=== PATIENT | male | born 1940 | race Caucasian/White ===

== ENCOUNTER 2016-10-21 05:20 | Emergency (ER) | payer MEDICARE, OTHER ==
[~2016-10-21] VITALS: Ht 175.3 cm; Wt 81.4 kg
[2016-10-21 05:24] VITALS: BP 155/76; PULSE 65; RESP 21; O2SAT 98
[2016-10-21 06:03] LABS: BASOPHILS % (AUTO) 0.6 % (0-3); MONOCYTES % (AUTO) 8.9 % (4-12); Mean Corpuscular Hemoglobin 30.9 pg (27.0-35.0); NEUTROPHILS % (AUTO) 69.6 % (40-74); Platelet Count 222 bil/L (150-400)
--- NOTE | 2016-10-21 06:05 | ED.REPORT ---
HPI-General Illness Date of Service Oct 21, 2016 ED Provider: Az Carias Patient is a healthy 76 year old male who presents to the ED complaining of UTI symptoms onset 4 days ago. Associated symptoms include dysuria, abdominal pain that awakes him at night, and constipation (osnet 3-4 days ago). He has been taking stool softeners and laxatives with little relief. He has daily bowel movements but they are very difficult to pass. He denies fevers, chills, back pain, vomiting, or any other symptoms. He has been taking AZO at home with little relief. He has taken sulfamethoxazole before and would like a prescription. Nursing Notes Stated Complaint: BLADDER INFECTION Chief Complaint: Male Abdominal Pain Nursing Notes Reviewed: Yes Allergies: Coded Allergies: No Known Allergies (Unverified , 10/21/16) Scheduled Sulfamethoxazole/Trimeth 800-160 mg (Bactrim DS) 1 Each Tablet 1 TABLET PO BID Scheduled PRN Magnesium Hydroxide (Milk of Magnesia) 400 Mg/5 Ml Oral.susp 15 ML PO QID PRN PRN For Constipation Polyethylene Glycol 3350 (Miralax) 17 Gm Powd.pack 17 GM PO DAILY PRN PRN For Constipation General Time Seen by MD: 06:04 Chief Complaint Other (Dysuria ) Hx Obtained From: Patient Arrived By: Walk-in Sudden in Onset?: Yes Onset Occurred: 4 days ago Symptom Duration: Since onset Similar Sx Previous: Yes Past Medical History Past Medical History Denies Past Surgical History TURP Smoking History Unknown if Ever Smoker Social History Alcohol Use: "Social" Ambulatory Status Independent Review of Systems Full Review of Systems Constitutional: Denies: Chills, Fever GI: Reports: Abdominal pain, Constipation, Denies: Vomiting Male: Reports Dysuria Musculoskeletal: Denies: Back pain Complete sys rev & neg: except as marked. Physical Exam Vital Signs Vital Signs Date Time Temp Pulse Resp B/P Pulse Ox O2 Delivery O2 Flow Rate FiO2 10/21/16 07:37 70 16 157/87 96 Room Air 10/21/16 05:24 36.2 65 21 155/76 98 Room Air Initial VS: Reviewed, Vital signs abnormal Head / Eyes: Atraumatic, Normocephalic Neck: Full range of motion Respiratory: Breath sounds normal, Clear to auscultation, No respiratory distress Cardiovascular: Intact distal pulses Abdomen / GI: Soft, Non-tender Skin: Warm, Dry Neurologic: Alert, Oriented, Nonfocal Psychiatric: Mood/affect normal, Behavior normal, Normal thought content General/Constitutional: Awake, Alert, Well developed Interpretation & Diagnostics Lab Results Interpretation Result Diagram: 10/21/16 0550 10/21/16 0550 Test 10/21/16 05:40 10/21/16 05:50 Urine Color Mobile (YELLOW) Urine Appearance Clear (CLEAR,HAZY) Urine pH 6.0 (5.0-8.0) Urine Specific Reading 1.015 (1.003-1.035) Urine Protein mg/dL (NEG,TRACE) Urine Glucose (UA) Negativemg/dL (NEGATIVE) Urine Ketones mg/dL (NEGATIVE) Urine Occult Blood Negative (NEGATIVE) Urine Nitrite (NEGATIVE) Urine Bilirubin (NEGATIVE) Urine Urobilinogen mg/dL (NORMAL) Urine Leukocyte Esterase (NEGATIVE) Urine RBC 0-2/hpf (0-2) Urine WBC 0-5/hpf (0-5) Urine Epithelial Cells Occasional/hpf (NONE-MOD) Urine Crystals None seen (NONE SEEN) Urine Bacteria None/hpf (NONE-FEW) Urine Hyaline Casts None/lpf (NONE) Urine Granular Casts None seen (NONE SEEN) Urine Waxy Casts None seen (NONE SEEN) Urine Red Blood Cell Casts None seen (NONE SEEN) Urine White Blood Cell Casts None seen (NONE SEEN) Urine Mucus None seen (None Seen) Urine Trichomonas None seen (NONE SEEN) Urine Yeast None (NONE SEEN) Urinalysis Comment Color interference Urine Culture Reflexed Not indicated Hold Urine Received (Received) White Blood Count 7.0th/mm3 (3.8-10.1) Red Blood Count 5.31mil/mm3 (4.40-5.80) Hemoglobin 16.4g/dL (13.8-17.2) Hematocrit 48.3% (41.0-50.0) Mean Corpuscular Volume 91.0fL (81-100) Mean Corpuscular Hemoglobin 30.9pg (27.0-35.0) Mean Corpuscular Hemoglobin Concent 34.0% (32.0-37.0) Red Cell Distribution Width 13.1% (12.3-15.4) Platelet Count 222bil/L (150-400) Neutrophils (%) (Auto) 69.6% (40-74) Lymphocytes (%) (Auto) 15.6% (14-46) Monocytes (%) (Auto) 8.9% (4-12) Eosinophils (%) (Auto) 5.0% (0-5) Basophils (%) (Auto) 0.6% (0-3) Sodium Level 142mEq/L (134-144) Potassium Level 4.5mEq/L (3.5-5.2) Chloride Level 103mEq/L (97-108) Carbon Dioxide Level 25mmol/L (18-29) Blood Urea Nitrogen 9mg/dL (8-27) Creatinine 0.94mg/dL (0.76-1.27) Estimat Glomerular Filtration Rate 83mL/min (>59) Glucose Level 114mg/dL (60-99) Calcium Level 9.1mg/dL (8.5-10.1) Magnesium Level 2.1mg/dL (1.6-2.6) Total Bilirubin 0.5mg/dL (0.0-1.2) Aspartate Amino Transf (AST/SGOT) 23U/L (0-50) Alanine Aminotransferase (ALT/SGPT) 16U/L (0-44) Alkaline Phosphatase 97U/L (25-160) Total Protein 7.4g/dL (6.4-8.4) Albumin 4.3g/dL (3.4-5.0) Lipase 73U/L (13-60) CT Abd / Pelvis Interpretation IMPRESSION: Large amount of intracolonic stool and colonic distention. No appendicitis, diverticulitis, or mechanical small bowel obstruction. Other findings above. Please see final report for other non-emergent incidental findings Edith Allen M.D. Study type: Abdominal CT IV contrast Interpretation / Wet Read by: Interpret - Radiologist Re-Eval/Medical Decision Med Decision/Clinical Course No obvious sign of UTI based on the urinalysis however given his symptoms will treat with Bactrim. Additionally giving the vague abdominal pain and advanced age basic labs and CT scan were performed and were reassuring. Bowel regimen was prescribed as well. Return and follow-up precautions given Time of Eval: 07:21 Re-Evaluation/Progress Note: Rechecked patient. Discussed plan for discharge. Patient understands and agrees with plan. All questions addressed at this time. Counseled Regarding: Diagnosis, Lab results, Need for follow-up, When/why to return to ED Discharge & Departure Primary Impression: Constipation Constipation type: unspecified constipation type Qualified Code: K59.00 - Constipation, unspecified Additional Impression: Dysuria Disposition: Home Discharge Condition All VS Reviewed: Yes Condition: Stable Additional Instructions: Take MiraLAX, milk of magnesia for your constipation. Take Bactrim for your dysuria. Follow-up with your regular doctor in the next 2 days and return to the ER as needed for worsening symptoms. Referrals: Zuleyka Mathews (PCP) Scribe Attestation Portions of this note were transcribed by Radha Vera. I, Dr. Carias personally performed the history, physical exam and medical decision-making; I reviewed and confirmed the accuracy of the information in the transcribed note. Signed by: Radha Vera 10/21/16, 0729 copies to: Zuleyka Mathews Timothy S DO Oct 21, 2016 06:05 RADHA VERA Oct 21, 2016 06:27
[2016-10-21 06:29] LABS: Magnesium 2.1 mg/dL (1.6-2.6)
[2016-10-21 06:39] LABS: APPEARANCE,URINE CLEAR (CLEAR,HAZY); COLOR,URINE ORANGE (YELLOW); OCCULT BLOOD,URINE NEGATIVE (NEGATIVE)
[2016-10-21] MEDS ORDERED: MAGN400O4 PO (07:25)
[2016-10-21] MEDS ORDERED: POLY17PO6 PO (07:25)
[2016-10-21] MEDS ORDERED: SULF1TAB7 PO (07:25)
--- NOTE | 2016-10-21 07:29 | DRSVH ---
PROCEDURE: CT ABDOMEN AND PELVIS WITH CONTRAST (PNL-7102) INDICATIONS: diffuse abd pain TECHNIQUE: After the administration of intravenous contrast, 5 mm thick sections acquired from the diaphragm to the symphysis. 5 mm coronal and sagittal reformats were acquired. For radiation dose reduction, the following was used: automated exposure control, adjustment of mA and/or kV according to patient siz e. COMPARISON: None. FINDINGS: Image quality: Good. ABDOMEN: Lung bases: Lung bases show only minimal subsegmental atelectasis on the right Heart size is normal. Solid organs: Liver and spleen are normal in size and enhancement. Gallbladder is within normal arce its. Biliary system is non dilated. Pancreas enhances normally. No adrenal nodules. Kidneys demon strate normal size and enhancement, without hydronephrosis. Peritoneum and bowel: Bowel loops demonstrate normal wall thickness and caliber. The exception may b e the terminal ileum which suggests mildly thickened wall but no flaca-fat stranding is seen. No free fluid or air. Nodes and vessels: No retroperitoneal or mesenteric adenopathy by size criteria. Aorta and inferior vena cava are normal in size. Miscellaneous: No ventral hernias. PELVIS: Genitourinary: Bladder wall thickness cannot be determined because of incomplete underfilling. Prost ate is mildly enlarged with evidence of TURP. Miscellaneous: No inguinal hernias or adenopathy. Bones: No suspicious bony lesions. No vertebral body compression fractures. IMPRESSION: Question of terminal ileum mild inflammatory change. No acute disease is otherwise seen or suggested. Previous TURP. Probable very small hiatal hernia. Dictated by: Manoj Chatterjee M.D. on 10/21/2016 at 7:21 Approved by: Manoj Chatterjee M.D. on 10/21/2016 at 7:27
[2016-10-21 07:37] VITALS: BP 157/87; PULSE 70; RESP 16; O2SAT 96
== END 2016-10-21 07:38 | disposition home or self-care (01) ==
LOC: SED 05:20
DX: K59.00 Constipation, unspecified (principal); R30.0 Dysuria
CPT/HCPCS: 36415; 74177; 80053; 81000; 83690; 83735; 85025; 99284; Q9967

== ENCOUNTER 2016-10-24 19:31 | Emergency (ER) | payer MEDICARE ==
[~2016-10-24] VITALS: Ht 175.3 cm; Wt 81.4 kg
[~2016-10-24 19:31] MED LIST: MAGN400O4 PO; POLY17PO6 PO; SULF1TAB7 PO
[2016-10-24 19:37] VITALS: BP 172/82; PULSE 80; RESP 18; O2SAT 97
--- NOTE | 2016-10-24 22:19 | ED.REPORT ---
HPI-General Illness Date of Service Oct 24, 2016 ED Provider: Pete Mcnamara Patient is an otherwise healthy 76 year old male who presents to the ED complaining of constipation onset 8 days ago. He denies abdominal pain, vomiting , hematochezia, or any other symptoms. He was seen 4 days ago for the same symptoms. His last BM was at 5 am this morning after 3 hours of trying. He is currently on sulfa for a bladder infection. Nursing Notes Stated Complaint: CONSTIPATION Chief Complaint: General Complaint Nursing Notes Reviewed: Yes Allergies: Coded Allergies: No Known Allergies (Unverified , 10/21/16) Scheduled Sulfamethoxazole/Trimeth 800-160 mg (Bactrim DS) 1 Each Tablet 1 TABLET PO BID Scheduled PRN Magnesium Hydroxide (Milk of Magnesia) 400 Mg/5 Ml Oral.susp 15 ML PO QID PRN PRN For Constipation Polyethylene Glycol 3350 (Miralax) 17 Gm Powd.pack 17 GM PO DAILY PRN PRN For Constipation General Time Seen by MD: 22:19 Chief Complaint Other (Constipation ) Hx Obtained From: Patient Arrived By: Walk-in Sudden in Onset?: Yes Onset Occurred: 1 week ago Symptom Duration: Since onset Severity: Current: No pain currently Severity: Maximum: No pain Pertinent Negative: Pt denies other symptoms Pertinent Negative: Exacerbated by nothing Recent Healthcare: Recent doctor visit Similar Sx Previous: Yes Past Medical History Past Medical History Denies Past Surgical History TURP Smoking History Unknown if Ever Smoker Social History Alcohol Use: "Social" Other Social History: Local resident Ambulatory Status Independent Review of Systems Full Review of Systems GI: Reports: Constipation, Denies: Abdominal pain, Hematochezia, Vomiting Complete sys rev & neg: except as marked. Physical Exam Nursing note and vitals reviewed. Constitutional: Well-developed, well-nourished. Not diaphoretic. Head: Normocephalic and atraumatic. Mouth/Throat: Oropharynx is clear and moist. No oropharyngeal exudate. Neck: Supple, no tracheal deviation. Cardiovascular: Normal rate, regular rhythm. Equal and intact distal pulses throughout. Pulmonary/Chest: Effort normal and breath sounds normal. No respiratory distress. Abdominal: Soft. No distension. There is no tenderness, rebound, or guarding. Bowel sounds present. Musculoskeletal: Range of motion grossly intact, moving all extremities. No edema or tenderness appreciated. Neurological: AOx3. Grossly nonfocal exam. Strength and sensation intact and equal to bilateral upper and lower extremities. Skin: Warm and dry, no rashes or pallor appreciated. Psychiatric: Appropriate mood and affect. Behavior appears normal. Vital Signs Vital Signs Date Time Temp Pulse Resp B/P Pulse Ox O2 Delivery O2 Flow Rate FiO2 10/24/16 23:36 74 20 140/81 98 10/24/16 19:37 36.8 80 18 172/82 97 Room Air Re-Eval/Medical Decision Med Decision/Clinical Course 76M w/ constipation. No abd pain or TTP to suggest acute intraabdominal process. Well appearing. Patient given mag citrate. Careful return precautions and need for PCP f/u discussed. Patient agreeable to plan, no further questions. Time of Eval: 23:38 Re-Evaluation/Progress Note: Discussed plan for discharge. Patient understands and agrees with plan. All questions addressed at this time. Counseled Regarding: Diagnosis, Need for follow-up, When/why to return to ED Discharge & Departure Primary Impression: Constipation Constipation type: unspecified constipation type Qualified Code: K59.00 - Constipation, unspecified Disposition: Home Discharge Condition All VS Reviewed: Yes Condition: Stable Patient Instructions: Constipation (ED) Additional Instructions: You have been seen in the emergency department for evaluation of constipation. At this time, as discussed, your abdomen is soft and is not tender. I do not think that there is an emergent cause for your constipation at this time, however if you develop any abdominal pain I'd like you to return to the emergency room. Please follow up with your regular doctor in the next several days. Referrals: Zuleyka Mathews (PCP) Scribe Attestation Portions of this note were transcribed by Radha Mortensen. I, Dr. Mcnamara personally performed the history, physical exam and medical decision-making; I reviewed and confirmed the accuracy of the information in the transcribed note. Signed by: Radha Mortensen 10/24/16, 3704 copies to: Zuleyka Mathews William B MD Oct 24, 2016 22:19 RADHA MORTENSEN Oct 24, 2016 23:06
[2016-10-24 23:36] VITALS: BP 140/81; PULSE 74; RESP 20; O2SAT 98
[2016-11-09] MEDS ORDERED: ASPI-973 PO (15:50)
[2016-11-09] MEDS ORDERED: VITA400C64 PO (15:50)
[2016-11-09] MEDS ORDERED: MAGN100T6 PO (15:50)
[2016-11-09] MEDS ORDERED: CYAN10008 PO (15:50)
[2016-11-09] MEDS ORDERED: SAW/1TAB2 PO (15:50)
[2016-11-09] MEDS ORDERED: MULT-1018 PO (15:50)
[2016-11-09] MEDS ORDERED: POLY17PO6 PO (15:50)
[2016-11-09] MEDS ORDERED: KELP1TAB2 PO (15:50)
== END 2016-10-24 23:44 | disposition home or self-care (01) ==
LOC: SED 19:31
DX: K59.00 Constipation, unspecified (principal); Z87.448 Personal history of other diseases of urinary system

== ENCOUNTER → 2016-11-10 | Day surgery (SDC) | payer MEDICARE ==
[~2016-11-10] VITALS: Ht 175.3 cm; Wt 78.0 kg
[~2016-11-10] MED LIST changes: +0.9% Sodium Chloride 1,000 ML IV PRN; +ASPI-973 PO; +CYAN10008 PO; +KELP1TAB2 PO; +MAGN100T6 PO; -MAGN400O4 PO; +MULT-1018 PO; +SAW/1TAB2 PO; -SULF1TAB7 PO; +Sodium Chloride LOK Flush 10 mL Syringe IV PRN; +VITA400C64 PO; +fentaNYL-PF 50 mCg/mL 2 mL Inj IVPUSH PRN
[2016-11-10 13:36] VITALS: BP 143/85; PULSE 66; RESP 18; O2SAT 99
[2016-11-10 14:21] VITALS: BP 110/60; PULSE 61; RESP 15; O2SAT 96
[2016-11-10 14:39] VITALS: BP 111/60; PULSE 62; RESP 16; O2SAT 98
--- NOTE | 2016-11-10 14:47 | ENDO ---
[address] [address] ENDOSCOPY PROCEDURE PATIENT: JUAN RAMON VIERA : 1940 MR#: [id number] ADMIT: 11/10/2016 JOB ID: [id number] DATE: 11/10/2016 PROCEDURE: Colonoscopy. INDICATION: Constipation. The patient's ASA classification is 2. Mallampati score is 2. MEDICATIONS: 1. Versed 5 mg. 2. Fentanyl 100 mcg. INSTRUMENT USED: PCF H 180 AL. PREPARATION QUALITY: Was good. PROCEDURE DETAILS: After informed consent was obtained, the patient was brought to the GI suite, where he was placed on oxygen via nasal cannula and monitored with continuous pulse oximeter, telemetry and blood pressure monitoring. A time-out was performed. Then, he was placed in the left lateral decubitus position and medications were administered for sedation. Digital rectal examination was performed, which was unremarkable. The colonoscope was then inserted into the rectum and advanced under direct visualization to the cecum, which was identified by the presence of the ileocecal valve and appendiceal orifice. Once the cecum was reached, the colonoscope was withdrawn back into the rectum and mucosa and lumen were examined. In the rectum, retroflexion was performed. Following retroflexion, remaining air in the rectum was suctioned, and procedure was completed. FINDINGS: Normal examination from rectum to cecum. IMPRESSION: Normal colonoscopy. RECOMMENDATIONS: 1. Followup in GI clinic. 2. Fiber-rich diet. 3. Repeat colonoscopy in 10 years, sooner if symptoms should dictate. COMPLICATIONS: None. ESTIMATED BLOOD LOSS: 0.
== END | disposition home or self-care (01) ==
LOC: END 00:18
PROVIDERS: ATTEND Internal Medicine Gastroenterology
DX: K59.00 Constipation, unspecified (principal); R19.4 Change in bowel habit; G47.33 Obstructive sleep apnea (adult) (pediatric); R60.9 Edema, unspecified; Z79.82 Long term (current) use of aspirin
CPT/HCPCS: 45378; 99153; G0500; J2250; J3010; J7030

== ENCOUNTER 2016-11-11 01:07 | Emergency (ER) | payer MEDICARE ==
[~2016-11-11] VITALS: Ht 175.3 cm; Wt 80.9 kg
[~2016-11-11 01:07] MED LIST changes: -0.9% Sodium Chloride 1,000 ML IV PRN; -Sodium Chloride LOK Flush 10 mL Syringe IV PRN; -fentaNYL-PF 50 mCg/mL 2 mL Inj IVPUSH PRN
[2016-11-11 01:16] VITALS: BP 139/80; PULSE 66; RESP 16; O2SAT 97
--- NOTE | 2016-11-11 01:31 | ED.REPORT ---
HPI-Abd Pain M 40 and Over Date of Service Nov 11, 2016 ED Provider: Luis Miranda MD 76-year-old male with colonoscopy performed within the last 24 hours presents to the ED complaining of pressure in the abdomen and feeling like he needs to pass a bowel movement. He states that this feeling has been constant over the last 2 weeks, this was the reason he began his workup initially that led to the colonoscopy. Initially he was given MiraLAX, and then switched to magnesium citrate. Each of these treatments causes him to have explosive diarrhea. He was evaluated 2 weeks ago with abdominal CT and findings were negative. He was subsequently evaluated with colonoscopy to rule out masses or findings related to colon blockage or pathology. He states that the colonoscopy report was negative. Today he states that his symptoms are exactly the same as previous to colonoscopy. He also states that he feels a tightness in his abdomen relieved by passing gas. Nursing Notes Stated Complaint: CONSTIPATION POST PROCEDURE Chief Complaint: Male Abdominal Pain Nursing Notes Reviewed: Yes Allergies: Coded Allergies: No Known Drug Allergies (Verified Allergy, Unknown, 11/09/16) Scheduled Aspirin (Aspirin) 81 Mg Tablet 81 MG PO DAILY Cyanocobalamin (Vitamin B-12) (Vitamin B-12) 1,000 Mcg Tablet 1,000 MCG PO DAILY Kelp (Kelp) 1 Each Tablet 1 EACH PO DAILY Magnesium Citrate (Magnesium Citrate) 100 Mg Tablet 100 MG PO DAILY Multivitamin (Multi Vitamin Daily) 1 Each Tablet 1 EACH PO DAILY Saw/Vit E/Sod Trisha/Lyc/Beta/Pyg (Prostate Health Caplet) 1 Each Tablet 1 EACH PO DAILY Vitamin E Mixed (Vitamin E) 400 Unit Capsule 400 UNIT PO DAILY Miscellaneous Medications Polyethylene Glycol 3350 (Miralax) 17 Gm Powd.pack 17 GM PO General Time Seen by MD: 01:29 Chief Complaint Constipation, Other (tenesmus) Hx Obtained From: Patient Sudden in Onset?: No Onset Occurred: More than a week ago... (2 weeks) Symptom Duration: More than a week... (2 weeks) Location: : Diffuse Severity: Current: No pain currently Severity: Maximum: No pain Risk Factors )( AAA Risk Stratification Risk factors reviewed CAD Risk Stratification Risk factors reviewed TAD Risk Stratification Risk factors reviewed Past Medical History Past Medical History Denies Past Surgical History TURP Smoking History Unknown if Ever Smoker Social History Alcohol Use: "Social" Other Social History: Local resident Ambulatory Status Independent Review of Systems Complete sys rev & neg: except as marked. Physical Exam Initial Vital Signs Vital Signs (First) Date Time Temp Pulse Resp B/P Pulse Ox O2 Delivery O2 Flow Rate FiO2 11/11/16 01:16 36.5 66 16 139/80 97 Room Air Initial VS: Reviewed, Vital signs normal Head / Eyes: Atraumatic, Normocephalic, PERRL ENT: Mucous membranes moist, Conjunctiva normal, No scleral icterus Neck: Supple, Non-tender, Full range of motion Extremities: Vascular intact, Neuro intact, No swelling, No tenderness Skin: Warm, Dry, No cyanosis Neurologic: Alert, Oriented, Nonfocal Psychiatric: Mood/affect normal, Behavior normal, Normal thought content Abdomen: Atraumatic, No guarding, No rebound, BS normoactive, No distention, No palpable mass, No pulsatile mass Tenderness/Guarding/Rebound: Positive: Tender RUQ... (Mild) Rectum / Perineum: Atraumatic, No gross blood, No discharge, No fecal impaction , No fissures, No hemorrhoids, No lesions, No mass increased sphincter tone tender with insertion Interpretation & Diagnostics Lab Results Interpretation Result Diagram: 11/11/16 0246 11/11/16 0246 Test 11/11/16 02:46 White Blood Count 6.9th/mm3 (3.8-10.1) Red Blood Count 5.62mil/mm3 (4.40-5.80) Hemoglobin 17.3g/dL (13.8-17.2) Hematocrit 50.6% (41.0-50.0) Mean Corpuscular Volume 90.0fL (81-100) Mean Corpuscular Hemoglobin 30.8pg (27.0-35.0) Mean Corpuscular Hemoglobin Concent 34.2% (32.0-37.0) Red Cell Distribution Width 12.8% (12.3-15.4) Platelet Count 258bil/L (150-400) Neutrophils (%) (Auto) 70.5% (40-74) Lymphocytes (%) (Auto) 13.9% (14-46) Monocytes (%) (Auto) 11.0% (4-12) Eosinophils (%) (Auto) 4.1% (0-5) Basophils (%) (Auto) 0.4% (0-3) Sodium Level 140mEq/L (134-144) Potassium Level 4.6mEq/L (3.5-5.2) Chloride Level 102mEq/L (97-108) Carbon Dioxide Level 21mmol/L (18-29) Blood Urea Nitrogen 11mg/dL (8-27) Creatinine 0.98mg/dL (0.76-1.27) Estimat Glomerular Filtration Rate 79mL/min (>59) Glucose Level 97mg/dL (60-99) Calcium Level 9.3mg/dL (8.5-10.1) Magnesium Level 2.0mg/dL (1.6-2.6) Total Bilirubin 0.5mg/dL (0.0-1.2) Aspartate Amino Transf (AST/SGOT) 24U/L (0-50) Alanine Aminotransferase (ALT/SGPT) 16U/L (0-44) Alkaline Phosphatase 95U/L (25-160) Total Protein 7.5g/dL (6.4-8.4) Albumin 4.4g/dL (3.4-5.0) Lipase 83U/L (13-60) Hold Barrientos Top Tube Received (Received) Lab Results Interpretation: Insignificant findings Re-Eval/Medical Decision Med Decision/Clinical Course It does not appear that there is any acute process going on at this time. However, the patient has just had a colonoscopy and with tightness in the abdomen, and should be evaluated with follow-up CT scan to rule out bleeding or trauma from colonoscopy even though this is unlikely. It is just had a bowel prep from the colonoscopy in the last 24 hours is unlikely that there is impacted stool in the colon at this time. This patient describes his history and seems likely that his complaint of constipation is more related to tenesmus than actual constipation. A digital rectal exam was performed which was negative for impacted stool, showed a excessively tight sphincter with pain on insertion despite adequate use of lubricant. Counseled Regarding: Diagnosis, Lab results, Need for follow-up, When/why to return to ED Discharge & Departure Primary Impression: Status post colonoscopy Additional Impression: Tenesmus Disposition: Home Vital Signs - All Vital Signs Date Time Temp Pulse Resp B/P Pulse Ox O2 Delivery O2 Flow Rate FiO2 11/11/16 05:30 36.9 64 16 137/81 94 Room Air 11/11/16 01:16 36.5 66 16 139/80 97 Room Air )( All Prior VS Reviewed: Yes Condition: Stable Additional Instructions: You came in today for abdominal pressure and a feeling that he needed to relieve her bowels. With the CT scan done today as well as the blood work that was ordered, we are not concerned for acute pathology at this point. Please follow-up with GI as previously planned, and discuss with them the findings of colonoscopy as well as your continuing symptoms of feeling like you need to pass a bowel movement even though there is not a significant amount of stool impaction Referrals: Zuleyka Mathews (PCP) Attending Statement The patient was seen and examined together with Dr. Guadalupe and I agree with the history, exam and plan as outlined in the note above. Luis Miranda MD Nov 11, 2016 01:31 Nirav Guadalupe DO Nov 11, 2016 02:42
[2016-11-11] MEDS ORDERED: 0.9% Sodium Chloride 1,000 ML IV ONE (02:26)
[2016-11-11 02:59] LABS: BASOPHILS % (AUTO) 0.4 % (0-3); EOSINOPHILS % (AUTO) 4.1 % (0-5); Mean Corpuscular Hemoglobin 30.8 pg (27.0-35.0); NEUTROPHILS % (AUTO) 70.5 % (40-74); Platelet Count 258 bil/L (150-400)
[2016-11-11 05:30] VITALS: BP 137/81; PULSE 64; RESP 16; O2SAT 94
--- NOTE | 2016-11-11 08:26 | DRSVH ---
PROCEDURE: CT ABDOMEN AND PELVIS WITH CONTRAST (PNL-7102) INDICATIONS: pain and distention post colonoscopy TECHNIQUE: After the administration of intravenous contrast, 5 mm thick sections acquired from the diaphragm to the symphysis. 5 mm coronal and sagittal reformats were acquired. For radiation dose reduction, the following was used: automated exposure control, adjustment of mA and/or kV according to patient veena reyes. COMPARISON: [facility], CT, CT ABD PELVIS W CON, 10/21/2016, 6:49. FINDINGS: Image quality: Excellent. ABDOMEN: Lung bases: Mild platelike atelectasis is present at the right lung base unchanged from the study kaia ed 10/21/16. Solid organs: Liver and spleen are normal in size and enhancement. Gallbladder is unremarkable. Bi liary system is non dilated. Pancreas enhances normally. No adrenal nodules. Kidneys demonstrate n ormal size and enhancement, without hydronephrosis. Peritoneum and bowel: Bowel loops demonstrate normal wall thickness and caliber. The appendix is thi n walled and gas filled.There are scattered sigmoid diverticula. No evidence for diverticulitis. No f ree fluid or air. Nodes and vessels: No retroperitoneal or mesenteric adenopathy by size criteria. Aorta and inferior vena cava are normal in size. Miscellaneous: No ventral hernias. PELVIS: Genitourinary: Bladder wall thickness is normal. The central portion of the prostate is fluid fille d suggesting prior urologic intervention. Miscellaneous: No inguinal hernias or adenopathy. Bones: No suspicious bony lesions. No vertebral body compression fractures. IMPRESSION: 1. No acute intra-abdominal findings. Specifically, no intra-abdominal fluid or pneumoperitoneum to s uggest perforation after colonoscopy. These findings are concordant with the overnight interpretation. 2. Diverticulosis. No acute diverticulitis. Normal appendix. Dictated by: Jemma Li M.D. on 11/11/2016 at 8:21 Approved by: Jemma Li M.D. on 11/11/2016 at 8:24
== END 2016-11-11 05:28 | disposition home or self-care (01) ==
LOC: SED 01:07
DX: R19.8 Other specified symptoms and signs involving the digestive system and abdomen (principal); Z98.890 Other specified postprocedural states; Z79.82 Long term (current) use of aspirin
CPT/HCPCS: 36415; 74177; 80053; 83690; 83735; 85025; 96360; 99285; J7030; Q9967

== ENCOUNTER 2016-11-30 20:43 | Emergency (ER) | payer MEDICARE ==
[~2016-11-30] VITALS: Ht 175.3 cm; Wt 79.1 kg
[2016-11-30 21:26] VITALS: BP 149/87; PULSE 63; RESP 18; O2SAT 98
--- NOTE | 2016-11-30 22:00 | ED.REPORT ---
HPI-Abd Pain M 40 and Over Date of Service Nov 30, 2016 ED Provider: Dr. Viraj Olvera The patient is a 76 year old male who presents to the ED complaining of constipation. Patient has not had his own bowel movement in over a month. He gave himself an enema earlier this morning with minimal relief. He has been taking magnesium citrate for a week, Lactulose, and Linzess with no relief. Prior to this month, he has had normal bowel movements his whole life. He denies any change in his medical regimen, fever, vomiting, abdominal pain, or any other symptoms. He has an endoscopy scheduled soon and had a colonoscopy a week ago. Nursing Notes Stated Complaint: CONSTIPATION Chief Complaint: Male Abdominal Pain Nursing Notes Reviewed: Yes Allergies: Coded Allergies: No Known Drug Allergies (Verified Allergy, Unknown, 11/09/16) Scheduled Aspirin (Aspirin) 81 Mg Tablet 81 MG PO DAILY Cyanocobalamin (Vitamin B-12) (Vitamin B-12) 1,000 Mcg Tablet 1,000 MCG PO DAILY Kelp (Kelp) 1 Each Tablet 1 EACH PO DAILY Magnesium Citrate (Magnesium Citrate) 100 Mg Tablet 100 MG PO DAILY Multivitamin (Multi Vitamin Daily) 1 Each Tablet 1 EACH PO DAILY Saw/Vit E/Sod Trisha/Lyc/Beta/Pyg (Prostate Health Caplet) 1 Each Tablet 1 EACH PO DAILY Vitamin E Mixed (Vitamin E) 400 Unit Capsule 400 UNIT PO DAILY Miscellaneous Medications Polyethylene Glycol 3350 (Miralax) 17 Gm Powd.pack 17 GM PO General Time Seen by MD: 21:59 Chief Complaint Constipation Hx Obtained From: Patient Arrived By: Walk-in Sudden in Onset?: Yes Onset Occurred: More than a week ago... (1 month) Symptom Duration: Since onset Location: : Abdomen lower Quality: Painful Severity: Current: No pain currently Severity: Maximum: Moderate Recent Healthcare: No recent doctor visit, No recent hospitalization Similar Sx Previous: No Past Medical History Past Medical History Denies Past Surgical History TURP Smoking History Never Smoker Social History Alcohol Use: "Social" Other Social History: Local resident Ambulatory Status Independent Review of Systems Constitutional: Denies: Fever GI: Reports: Constipation, Denies: Abdominal pain, Nausea, Vomiting Musculoskeletal: Denies: Back pain, Extremity pain, Extremity swelling, Joint pain, Joint swelling, Neck pain Complete sys rev & neg: except as marked. Physical Exam Initial Vital Signs Vital Signs (First) Date Time Temp Pulse Resp B/P Pulse Ox O2 Delivery O2 Flow Rate FiO2 11/30/16 21:26 36.4 63 18 149/87 98 Room Air Initial VS: Reviewed General/Constitutional: Awake, Alert, Cooperative Respiratory / Chest: Atraumatic, Breath sounds NL, Breath sounds = bilat Cardiovascular: Heart rate NL, Regular rhythm, Heart sounds NL Abdomen: Atraumatic, Non-tender abdomen benign Back: Atraumatic, Full range of motion, Non-tender Head / Eyes: Atraumatic, Normocephalic ENT: Atraumatic, Mucous membranes moist Skin: Atraumatic, Color NL, No rash Neurologic: Oriented X3, Speech NL, No motor deficits Upper Extremity / MS: Atraumatic, Full range of motion, No deformity Lower Extremity / Pelvis / MS: Atraumatic, Full range of motion, No deformity Interpretation & Diagnostics Interpretation & Diagnostics: ABDOMINAL X-RAY IMPRESSION: constipated Lab Results Interpretation Result Diagram: 11/30/16224911/30/16 2250 Test 11/30/16 22:50 11/30/16 23:24 White Blood Count 6.9th/mm3 (3.8-10.1) Red Blood Count 5.14mil/mm3 (4.40-5.80) Hemoglobin 15.8g/dL (13.8-17.2) Hematocrit 45.9% (41.0-50.0) Mean Corpuscular Volume 89.3fL (81-100) Mean Corpuscular Hemoglobin 30.7pg (27.0-35.0) Mean Corpuscular Hemoglobin Concent 34.4% (32.0-37.0) Red Cell Distribution Width 12.7% (12.3-15.4) Platelet Count 238bil/L (150-400) Neutrophils (%) (Auto) 69.8% (40-74) Lymphocytes (%) (Auto) 15.1% (14-46) Monocytes (%) (Auto) 10.0% (4-12) Eosinophils (%) (Auto) 4.1% (0-5) Basophils (%) (Auto) 0.7% (0-3) Prothrombin Time 11.6sec (8.1-12.5) Prothromb Time International Ratio 1.08ratio Sodium Level 139mEq/L (134-144) Potassium Level 4.2mEq/L (3.5-5.2) Chloride Level 103mEq/L (97-108) Carbon Dioxide Level 23mmol/L (18-29) Blood Urea Nitrogen 7mg/dL (8-27) Creatinine 0.83mg/dL (0.76-1.27) Estimat Glomerular Filtration Rate 96mL/min (>59) Glucose Level 99mg/dL (60-99) Calcium Level 9.1mg/dL (8.5-10.1) Magnesium Level 2.1mg/dL (1.6-2.6) Total Bilirubin 0.5mg/dL (0.0-1.2) Aspartate Amino Transf (AST/SGOT) 24U/L (0-50) Alanine Aminotransferase (ALT/SGPT) 16U/L (0-44) Alkaline Phosphatase 90U/L (25-160) Total Protein 7.1g/dL (6.4-8.4) Albumin 4.1g/dL (3.4-5.0) Lipase 67U/L (13-60) Urine Color Yellow (YELLOW) Urine Appearance Clear (CLEAR,HAZY) Urine pH 5.5 (5.0-8.0) Urine Specific Mentor 1.005 (1.003-1.035) Urine Protein Negativemg/dL (NEG,TRACE) Urine Glucose (UA) Negativemg/dL (NEGATIVE) Urine Ketones Negativemg/dL (NEGATIVE) Urine Occult Blood Negative (NEGATIVE) Urine Nitrite Negative (NEGATIVE) Urine Bilirubin Negative (NEGATIVE) Urine Urobilinogen Normalmg/dL (NORMAL) Urine Leukocyte Esterase Negative (NEGATIVE) Urine RBC 0-2/hpf (0-2) Urine WBC 0-5/hpf (0-5) Urine Epithelial Cells Occasional/hpf (NONE-MOD) Urine Crystals None seen (NONE SEEN) Urine Bacteria None/hpf (NONE-FEW) Urine Hyaline Casts None/lpf (NONE) Urine Granular Casts None seen (NONE SEEN) Urine Waxy Casts None seen (NONE SEEN) Urine Red Blood Cell Casts None seen (NONE SEEN) Urine White Blood Cell Casts None seen (NONE SEEN) Urine Mucus None seen (None Seen) Urine Trichomonas None seen (NONE SEEN) Urine Yeast None (NONE SEEN) Urinalysis Comment None Urine Culture Reflexed Not indicated Re-Eval/Medical Decision Med Decision/Clinical Course 76-year-old with a recent onset of constipation after fairly normal bowel habit previously. He has had a colonoscopy, and apparently a fairly adequate colon prep, But is again full of stool on a plain film. He is currently on lactulose with no result. We will begin Colyte prep and plan follow up with GI as already arranged. He is just had two CAT scans and no indication for additional imaging at this time. His exam is benign. Time of Eval: 23:07 Re-Evaluation/Progress Note: Pt rechecked. Informed pt his x-ray results. He is quite constipated. Plan to dischage pt and follow up with GI. Pt understands and agrees with plan. All questions addressed. Counseled Regarding: Diagnosis, Lab results, Need for follow-up, When/why to return to ED Discharge & Departure Primary Impression: Constipation Constipation type: unspecified constipation type Qualified Code: K59.00 - Constipation, unspecified Disposition: Home Vital Signs - All Vital Signs Date Time Temp Pulse Resp B/P Pulse Ox O2 Delivery O2 Flow Rate FiO2 11/30/16 23:39 58 18 169/94 99 11/30/16 21:26 36.4 63 18 149/87 98 Room Air )( All Prior VS Reviewed: Yes Condition: Stable Patient Instructions: Constipation (ED) Additional Instructions: Thank you for entrusting us with your care today. Your abdominal x-ray shows that you are again constipated. There is solid stool and gas all the way over to the right colon. Your enemas are only dealing with the lower part of the rectum, see need a more thorough cleanout. I am sending you home with [facility] colonoscopy prep. Resume your Linzess tomorrow as directed. Follow up with gastroenterology in the next week, call and make an appointment tomorrow. Return to the Emergency Department if you experience any new or worsening symptoms. I hope you feel better soon! Referrals: Zuleyka Mathews (PCP) Adryan Attestation Portion of this note were transcribed by Cheri Cullen. I, Dr. Olvera, personally performed the history, physical exam, and medical decision-making: I reviewed and confirmed the accuracy for the information in the transcribed note. Signed by: adryan Briceno, 11/30/16 3143 copies to: Zuleyka Mathews Christopher W MD Nov 30, 2016 22:00 Cheri Cullen Nov 30, 2016 22:07
[2016-11-30] MEDS ORDERED: 0.9% Sodium Chloride 1,000 ML IV ONE (22:05)
[2016-11-30 22:55] LABS: BASOPHILS % (AUTO) 0.7 % (0-3); EOSINOPHILS % (AUTO) 4.1 % (0-5); Mean Corpuscular Hemoglobin 30.7 pg (27.0-35.0); Mean Corpuscular Volume 89.3 fL (81-100); NEUTROPHILS % (AUTO) 69.8 % (40-74); Platelet Count 238 bil/L (150-400)
[2016-11-30] MEDS ORDERED: Lactulose 20 Gm/30 mL 30 mL Syrup PO ONE (23:05)
[2016-11-30 23:15] LABS: INR 1.08 ratio
[2016-11-30 23:22] LABS: Magnesium 2.1 mg/dL (1.6-2.6)
[2016-11-30 23:34] LABS: APPEARANCE,URINE CLEAR (CLEAR,HAZY); COLOR,URINE YELLOW (YELLOW); OCCULT BLOOD,URINE NEGATIVE (NEGATIVE); PH,URINE 5.5 (5.0-8.0); UROBILINOGEN,URINE NORMAL (NORMAL)
[2016-11-30 23:39] VITALS: BP 169/94; PULSE 58; RESP 18; O2SAT 99
[2016-11-30] MEDS ORDERED: PEG/Electrolytes 4,000 mL Solution PO ONE ×2 (23:45→23:50)
--- NOTE | 2016-12-01 08:31 | DRSVH ---
PROCEDURE: X-RAY ACUTE ABDOMINAL SERIES ([id number]) INDICATIONS: pain, constipation despite enemas TECHNIQUE: One view chest and two views of the abdomen were acquired. COMPARISON: [facility], CR, XR ABD ACUTE SERIES 3VW, 11/25/2016, 9:31. FINDINGS: Surgical changes and devices: None. Chest: Lungs are clear. Heart size is normal. No pleural effusions. No pneumoperitoneum. Abdomen: Moderate fecal loading otherwise bowel gas pattern is normal. Bones: No suspicious bony lesions. IMPRESSION: Moderate fecal loading. Dictated by: Javier Mondragon RRA Interpreted: Juan Esteban MD on 12/01/2016 at 8:26 Transcribed by: SENAIT on 12/01/2016 at 8:30 Approved by: Juan Esteban M.D. on 12/01/2016 at 14:58
== END 2016-12-01 00:08 | disposition home or self-care (01) ==
LOC: SED 20:43
DX: K59.00 Constipation, unspecified (principal); Z79.82 Long term (current) use of aspirin; R10.9 Unspecified abdominal pain
CPT/HCPCS: 36415; 74022; 80053; 81000; 83690; 83735; 85025; 85610; 99284; J7030